=== PATIENT | male | born 1945 | race Caucasian/White ===

== ENCOUNTER 2022-11-06 08:00 | Outpatient (CLI) | payer MEDICARE, BC ==
[2022-11-06 18:25] LABS: BILIRUBIN,URINE NEGATIVE (NEGATIVE); GLUCOSE, URINE (UA) NEGATIVE (NEGATIVE); KETONES,URINE (UA) NEGATIVE (NEGATIVE); LEUKOCYTE ESTERASE, URINE MODERATE (NEGATIVE); NITRITE,URINE POSITIVE (NEGATIVE); OCCULT BLOOD,URINE TRACE-LYSE (NEGATIVE); PROTEIN,URINE NEGATIVE (NEGATIVE); UROBILINOGEN,URINE 0.2 (NORMAL) E.U./dL (NORMAL)
[2022-11-06 19:07] LABS: BACTERIA,URINE Few /HPF (None Seen); CLARITY,URINE CLEAR (CLEAR); RBC,URINE None Seen /HPF (0-5); SQUAMOUS EPITHELIAL CELL,UR FEW Squamous (<= Few); WBC CLUMPS,URINE PRESENT
== END 2022-11-06 23:59 | disposition home or self-care (01) ==
LOC: LAB.S 08:00
PROVIDERS: ATTEND Emergency Medicine
DX: R30.0 Dysuria (principal)
CPT/HCPCS: 81001; 87086

== ENCOUNTER 2022-11-20 19:04 | Emergency (ER) | payer MEDICARE, BC ==
--- OUTSIDE RECORDS SUMMARY | 2022-11-20 19:30 | EXTERNAL MEDICAL SUMMARY RPT | Continuity of Care Document ---
Author Name Unknown Address [address] [place] [address] Phone Organization [facility] Address [address] [place] [address] Phone Care Team Providers Care Manager Of Project Management Name Role Phone Unavailable Unavailable Unavailable China Harley, Medhat Unavailable Unavailable Sylvia Winston, Boby Unavailable Unavailable Rangel Patient Registrar Ii, Marlene Unavaila ble Unavailable Heath Patient Registrar, Luis Alfredo Unavailable U navailable Rangel Patient Registrar Ii, Marlene Unavaila ble Unavailable Medications date description facility 2022-11-06 00:00 [facility] [place] 2022-11-06 00:00 [facility]ide [facility] [place] 2022-11-08 00:00 finasteride [facility] [place] 2022-11-19 00:00 finasteride [facility] [place] 2022-11-19 00:00 finasteride [facility] [place] 2022-11-06 00:00 ASPIRIN [facility] [place] 2022-11-06 00:00 ASPIRIN [facility] [place] 2022-11-08 00:00 [facility] [place] 2022-11-19 00:00 [facility] [place] 2022-11-19 00:00 [facility]IN [facility] [place] 2022-11-19 00:00 cefdinir [facility] [place] 2022-11-06 00:00 ciprofloxacin hcl [facility] [place] 2022-11-06 00:00 ciprofloxacin hcl [facility] [place] 2022-11-06 00:00 ciprofloxacin hcl [facility] [place] 2022-11-06 00:00 ciprofloxacin hcl [facility] [place] 2022-11-06 00:00 ciprofloxacin hcl [facility] [place] 2022-11-06 00:00 [facility] [place] 2022-11-06 00:00 [facility] [place] 2022-11-08 00:00 [facility] [place] 2022-11-19 00:00 [facility] [place] 2022-11-19 00:00 [facility] [place] 2022-11-06 00:00 tamsulosin [facility] [place] 2022-11-06 00:00 tamsulosin [facility] [place] 2022-11-08 00:00 tamsulosin [facility] [place] 2022-11-19 00:00 tamsulosin [facility] [place] 2022-11-19 00:00 tamsulosin [facility] [place] 2022-11-06 00:00 [facility]IN [facility] [place] 2022-11-06 00:00 [facility] [place] 2022-11-08 00:00 [facility] [place] 2022-11-19 00:00 [facility] [place] 2022-11-19 00:00 [facility] [place] 2022-11-06 00:00 simvastatin [facility] [place] 2022-11-06 00:00 simvastatin [facility] [place] 2022-11-08 00:00 simvastatin [facility] [place] 2022-11-19 00:00 simvastatin [facility] [place] 2022-11-19 00:00 simvastatin [facility] [place] 2022-11-19 00:00 cefdinir [facility] [place] 2022-11-06 00:00 ciprofloxacin hcl [facility] [place] 2022-11-06 00:00 ciprofloxacin hcl [facility] [place] 2022-11-06 00:00 ciprofloxacin hcl [facility] [place] 2022-11-06 00:00 ciprofloxacin hcl [facility] [place] 2022-11-06 00:00 ciprofloxacin hcl [facility] [place] 2022-11-06 00:00 [facility]ide [facility] [place] 2022-11-06 00:00 [facility]asteride [facility] [place] 2022-11-08 00:00 [facility]asteride [facility] [place] 2022-11-19 00:00 [facility]ide [facility] [place] 2022-11-19 00:00 [facility]asteride [facility] [place] 2022-11-06 00:00 simvastatin [facility] [place] 2022-11-06 00:00 simvastatin [facility] [place] 2022-11-08 00:00 simvastatin [facility] [place] 2022-11-19 00:00 simvastatin [facility] [place] 2022-11-19 00:00 simvastatin [facility] [place] 2022-11-06 00:00 finasteride [facility] [place] 2022-11-06 00:00 [facility]asteride [facility] [place] 2022-11-08 00:00 finasteride [facility] [place] 2022-11-19 00:00 finasteride [facility] [place] 2022-11-19 00:00 finasteride [facility] [place] 2022-11-06 00:00 simvastatin [facility] [place] 2022-11-06 00:00 simvastatin [facility] [place] 2022-11-08 00:00 simvastatin [facility] [place] 2022-11-19 00:00 simvastatin [facility] [place] 2022-11-19 00:00 simvastatin [facility] [place] 2022-11-06 00:00 ciprofloxacin hcl [facility] [place] 2022-11-06 00:00 ciprofloxacin hcl [facility] [place] 2022-11-06 00:00 ciprofloxacin hcl [facility] [place] 2022-11-06 00:00 ciprofloxacin hcl [facility] [place] 2022-11-06 00:00 ciprofloxacin hcl [facility] [place] 2022-11-06 00:00 ciprofloxacin hcl [facility] [place] 2022-11-06 00:00 ciprofloxacin hcl [facility] [place] 2022-11-06 00:00 ciprofloxacin hcl [facility] [place] 2022-11-06 00:00 ciprofloxacin hcl [facility] [place] 2022-11-06 00:00 ciprofloxacin hcl [facility] [place] 2022-11-19 00:00 cefdinir [facility] [place] 2022-11-06 00:00 finasteride [facility] [place] 2022-11-06 00:00 [facility]ide [facility] [place] 2022-11-08 00:00 [facility]ide [facility] [place] 2022-11-19 00:00 finasteride [facility] [place] 2022-11-19 00:00 finasteride [facility] [place] 2022-11-06 00:00 tamsulosin [facility] [place] 2022-11-06 00:00 tamsulosin [facility] [place] 2022-11-08 00:00 tamsulosin [facility] [place] 2022-11-19 00:00 tamsulosin [facility] [place] 2022-11-19 00:00 tamsulosin [facility] [place] 2022-11-06 00:00 ASP[facility]IN [facility] [place] 2022-11-06 00:00 [facility] [place] 2022-11-08 00:00 [facility] [place] 2022-11-19 00:00 [facility] [place] 2022-11-19 00:00 [facility] [place] 2022-11-06 00:00 tamsulosin [facility] [place] 2022-11-06 00:00 tamsulosin [facility] [place] 2022-11-08 00:00 tamsulosin [facility] [place] 2022-11-19 00:00 tamsulosin [facility] [place] 2022-11-19 00:00 tamsulosin [facility] [place] 2022-11-06 00:00 simvastatin [facility] [place] 2022-11-06 00:00 simvastatin [facility] [place] 2022-11-08 00:00 simvastatin [facility] [place] 2022-11-19 00:00 simvastatin [facility] [place] 2022-11-19 00:00 simvastatin [facility] [place] 2022-11-19 00:00 cefdinir [facility] [place] 2022-11-06 00:00 tamsulosin [facility] [place] 2022-11-06 00:00 tamsulosin [facility] [place] 2022-11-08 00:00 tamsulosin [facility] [place] 2022-11-19 00:00 tamsulosin [facility] [place] 2022-11-19 00:00 tamsulosin [facility] [place] 2022-11-06 00:00 ASPIRIN [facility] [place] 2022-11-06 00:00 [facility]IN [facility] [place] 2022-11-08 00:00 [facility] [place] 2022-11-19 00:00 [facility] [place] 2022-11-19 00:00 [facility] [place] Problems date description facility 2022-11-06 00:00 Other and unspecified hyperlipi demia [facility] [place] 2022-11-06 00:00 Other and unspecified hyperlipi demia [facility] [place] 2022-11-06 00:00 Obesity [facility] [place] 2022-11-06 00:00 Obesity [facility] [place] 2022-11-06 00:00 Hyperlipidemia [facility] [place] 2022-11-06 00:00 Hyperlipidemia [facility] [place] 2022-11-06 00:00 Hypertensive episode [facility] [place] 2022-11-06 00:00 Hypertensive episode [facility] [place] 2022-11-06 00:00 Elevated blood press ure reading without diagnosis of hypertension [facility] [place] 2022-11-06 00:00 Elevated blood press ure reading without diagnosis of hypertension [facility] [place] 2022-11-06 00:00 Obesity, unspecified [facility] [place] 2022-11-06 00:00 Obesity, unspecified [facility] [place] 2022-11-06 00:00 Hyperlipidemia, unspecified [facility] [place] 2022-11-06 00:00 Hyperlipidemia, unspecified [facility] [place] 2022-11-06 00:00 Acute prostatitis [facility] [place] 2022-11-06 00:00 Acute prostatitis [facility] [place] 2022-11-06 00:00 Acute prostatitis [facility] [place] 2022-11-06 00:00 Acute prostatitis [facility] [place] 2022-11-06 00:00 Acute [facility]stat[facility] [place] 2022-11-06 00:00 Elevated blood-press ure reading, without diagnosis of hypertension [facility] [place] 2022-11-06 00:00 Elevated blood-press ure reading, without diagnosis of hypertension [facility] [place] 2022-11-06 00:00 Dysuria [facility] [place] 2022-11-06 00:00 Dysuria [facility] [place] 2022-11-06 00:00 Dysuria [facility] [place] 2022-11-06 00:00 Dysuria [facility] [place] 2022-11-06 00:00 Dysuria [facility] [place] 2022-11-08 00:00 Other and unspecified hyperlipi demia [facility] [place] 2022-11-08 00:00 Obesity [facility] [place] 2022-11-08 00:00 Hyperlipidemia [facility] [place] 2022-11-08 00:00 Hypertensive episode [facility] [place] 2022-11-08 00:00 Elevated blood press ure reading without diagnosis of hypertension [facility] [place] 2022-11-08 00:00 Obesity, unspecified [facility] [place] 2022-11-08 00:00 Hyperlipidemia, unspecified [facility] [place] 2022-11-08 00:00 Elevated blood-press ure reading, without diagnosis of hypertension [facility] [place] 2022-11-19 00:00 Other and unspecified hyperlipi demia [facility] [place] 2022-11-19 00:00 Other and unspecified hyperlipi demia [facility] [place] 2022-11-19 00:00 Elevated blood-press ure reading without diagnosis of hypertension [facility] [place] 2022-11-19 00:00 Obesity [facility] [place] 2022-11-19 00:00 Obesity [facility] [place] 2022-11-19 00:00 Acute urinary tract infection [facility] [place] 2022-11-19 00:00 Hyperlipidemia [facility] [place] 2022-11-19 00:00 Hyperlipidemia [facility] [place] 2022-11-19 00:00 Hypertensive episode [facility] [place] 2022-11-19 00:00 Hypertensive episode [facility] [place] 2022-11-19 00:00 Elevated blood press ure reading without diagnosis of hypertension [facility] [place] 2022-11-19 00:00 Elevated blood press ure reading without diagnosis of hypertension [facility] [place] 2022-11-19 00:00 Obesity, unspecified [facility] [place] 2022-11-19 00:00 Obesity, unspecified [facility] [place] 2022-11-19 00:00 Hyperlipidemia, unspecified [facility] [place] 2022-11-19 00:00 Hyperlipidemia, unspecified [facility] [place] 2022-11-19 00:00 Urinary tract infect ion, site not specified [facility] [place] 2022-11-19 00:00 Elevated blood-press ure reading, without diagnosis of hypertension [facility] [place] 2022-11-19 00:00 Elevated blood-press ure reading, without diagnosis of hypertension [facility] [place] Procedures date description facility 2022-11-06 00:00 Visit Code Hold [facility] [place] 2022-11-06 00:00 Visit Code Hold [facility] [place] 2022-11-06 00:00 Visit Code Hold [facility] [place] 2022-11-06 00:00 Visit Code Hold [facility] [place] 2022-11-06 00:00 Visit Code Hold [facility] [place] 2022-11-19 00:00 Visit Code Hold [facility] [place] 2022-11-06 00:00 POC URINALYSIS DIP [facility] [place] 2022-11-06 00:00 POC URINALYSIS DIP [facility] [place] 2022-11-06 00:00 POC URINALYSIS DIP [facility] [place] 2022-11-06 00:00 POC URINALYSIS DIP [facility] [place] 2022-11-06 00:00 POC URINALYSIS DIP [facility] [place] Results/Labs test date facility value unit notes Social History date description facility 2022-11-06 00:00 Never smoker [facility] [place] 2022-11-06 00:00 Never smoker [facility] [place] 2022-11-06 00:00 Never smoker [facility] [place] 2022-11-06 00:00 Never smoker [facility] [place] 2022-11-06 00:00 Never smoker [facility] [place] 2022-11-19 00:00 Never smoker [facility] [place] Vital Signs date measurement value units 2022-11-06 00:00 BMI 27.26 kg/m2 2022-11-06 00:00 BP_diastolic 90 mmHg 2022-11-06 00:00 BP_systolic 163 mmHg 2022-11-06 00:00 heart_rate 92 /min 2022-11-06 00:00 height_metric 179.07 cm 2022-11-06 00:00 height_standard 70.5 in 2022-11-06 00:00 respiration_rate 17 /min 2022-11-06 00:00 temperature_metric 36.5 C 2022-11-06 00:00 temperature_standard 97.7 F 2022-11-06 00:00 weight_metric 87.09 kg 2022-11-06 00:00 weight_standard 192 lb 2022-11-19 00:00 BMI 27.26 kg/m2 2022-11-19 00:00 BP_diastolic 99 mmHg 2022-11-19 00:00 BP_systolic 161 mmHg 2022-11-19 00:00 heart_rate 109 /min 2022-11-19 00:00 height_metric 179.07 cm 2022-11-19 00:00 height_standard 70.5 in 2022-11-19 00:00 respiration_rate 16 /min 2022-11-19 00:00 temperature_metric 36.5 C 2022-11-19 00:00 temperature_standard 97.7 F 2022-11-19 00:00 weight_metric 87.09 kg 2022-11-19 00:00 weight_standard 192 lb
--- NOTE | 2022-11-20 20:20 | ED Physician Documentation ---
PD HPI MALE - Stated complaint Stated Complaint: - Chief complaint Chief Complaint: General - History obtained from History obtained from: Patient - Additional information Additional information: patient c/o difficulty urinating with frequent urination but little output despite sensation of incomplete voiding. He cannot provide a clear timeframe regarding symptom onset/duration. He was prescribed macrobid 10/09/22 for these symptoms, cipro 11/06. He says he was recently seen in outpatient setting and prescribed cefdinir for UTI , started this medication yesterday. He presents for ongoing symptoms. Review of Systems Constitutional: denies: Fever GI: denies: Abdominal Pain, Nausea, Vomiting : reports: Dysuria, Frequency PD PAST MEDICAL HISTORY - Past Medical History Past Medical History: Yes - Allergies Allergies/Adverse Reactions: Allergies Allergy/AdvReac Type Severity Reaction Status Date / Time codeine Allergy Itching Verified 11/20/22 19:10 - Living Situation Living Arrangement: reports: At home PD ED PE NORMAL - Vitals Vital signs reviewed: Yes - General General: Alert and oriented X 3, No acute distress, Well developed/nourished - Abdomen Abdomen: Soft, Non tender, Non distended - Back Back: No CVA TTP Results - Vitals Vitals: Vital Signs - 24 hr 11/20/22 22:59 Heart Rate 83 Respiratory 16 Rate Blood Pressure 151/103 H O2 Saturation 97 Oxygen O2 Source Room air - Labs Labs: Laboratory Tests 11/20/22 19:45 Urine Color LIGHT YELLOW Urine Clarity CLEAR Urine pH 5.5 Ur Specific [place] 1.010 Urine Protein NEGATIVE Urine Glucose (UA) NEGATIVE Urine Ketones NEGATIVE Urine Occult Blood NEGATIVE Urine Nitrite NEGATIVE Urine Bilirubin NEGATIVE Urine Urobilinogen 0.2 (NORMAL) Ur Leukocyte Esterase NEGATIVE Ur Microscopic Review NOT INDICATED Urine Culture Comments NOT INDICATED PD Medical Decision Making - ED course Complexity details: reviewed old records (reviewed urine culture results (11/06/22; alpha-hemolytic strep sp.)), considered differential, d/w patient ED course: patient's symptoms suggest a differential diagnosis that includes (though not limited to) UTI, BPH. Doubt prostatitis (denies fever, chills/sweats). Lack of CVAT and normal UA suggest against pyelonephritis. Prior to UA results, and based on patient's symptoms, as well as considering he just started cefdinir yesterday (inadequate time to consider UTI treatment failure), I recommended IM ceftriaxone and patient agrees with this. Subsequently UA resulted, with normal (macroscopic/dip) result. I discussed this w/patient and advised him to continue the cefdinir to completion, but that I am increasingly suspecting BPH or other, gradual obstructive process (malignancy would be included on differential), and further advised him to arrange for f/u with his urologist. Return precautions discussed. Departure - Departure Disposition: 01 Home, Self Care Clinical Impression: Dysuria Condition: Good Instructions: ED Dysuria Uncertain Cause Follow-Up: Korey Willoughby MD [Primary Care Provider] - Comments: Because your symptoms are suggestive of a urinary tract infection, you were given a one-time dose of an antibiotic as an injection (ceftriaxone). As we discussed, your urinalysis subsequently was resulted, and there is no indication of infection in the urine at this time. It is possible that you have a urinary tract infection and the urinalysis appears clear because of a partially treated UTI (because you have been taking antibiotics already). I think this is unlikely, and so I am not sure as to the reason for your urinary difficulty. An enlarged prostate could be an explanation, but this requires testing by your urologist. I strongly recommend that you follow-up with a urologist as soon as can be arranged. I would recommend that you also schedule a follow-up appointment with your primary care provider within the next 7 to 10 days for reevaluation, as well. You should continue the antibiotic that was recently prescribed by your doctor. Forms: PCP List Discharge Date/Time: 11/20/22 22:59
[2022-11-20] MEDS ORDERED: cefTRIAXone 1 GM VIAL IM STA (20:55)
[2022-11-20] MEDS ORDERED: LIDOCAINE 1% 2 ML VIAL MC ONE (20:55)
[2022-11-20 21:07] LABS: BILIRUBIN,URINE NEGATIVE (NEGATIVE); GLUCOSE, URINE (UA) NEGATIVE (NEGATIVE); KETONES,URINE (UA) NEGATIVE (NEGATIVE); LEUKOCYTE ESTERASE, URINE NEGATIVE (NEGATIVE); NITRITE,URINE NEGATIVE (NEGATIVE); OCCULT BLOOD,URINE NEGATIVE (NEGATIVE); PH,URINE 5.5 PH (5.0-7.5); PROTEIN,URINE NEGATIVE (NEGATIVE); UROBILINOGEN,URINE 0.2 (NORMAL) E.U./dL (NORMAL)
[2022-11-20 21:17] LABS: CLARITY,URINE CLEAR (CLEAR)
[2022-11-20 23:02] VITALS: BP 151/103; O2SAT 97
== END 2022-11-20 22:59 | disposition home or self-care (01) ==
LOC: ED 19:04
DX: R30.0 Dysuria (principal)
CPT/HCPCS: 81001; 81003; 87086; 96372; 99283